=== PATIENT | female | born 1975 | race Caucasian/White ===

== ENCOUNTER 2020-04-05 06:29 | Emergency (ER) | payer SELFPAY ==
[~2020-04-05] VITALS: Ht 157.5 cm; Wt 73.9 kg
[2020-04-05 06:34] VITALS: Ht 157.5 cm; Wt 73.9 kg
[2020-04-05 09:33] LABS: CARBON DIOXIDE 26.4 mmol/L (21-32); CHLORIDE SERUM 101 mmol/L (98-107); CREATININE SERUM 0.8 mg/dL (0.6-1.0); GFR1 > 60 mL/min; GLUCOSE SERUM 109 mg/dL (74-106); POTASSIUM SERUM 3.5 mmol/L (3.5-5.1); SODIUM SERUM 136 mmol/L (136-145)
[2020-04-05 09:37] LABS: ALBUMIN 4.1 g/dL (3.4-5.0); ALKALINE PHOSPHATASE 159 U/L (46-116); ALT/SGPT 566 U/L (14-59); AST/SGOT 740 U/L (15-37); BASOPHIL % 0.3 % (0-2); BILIRUBIN TOTAL 0.45 mg/dL (0.20-1.00); LIPASE 358 IU/L (73-393); PLATELET COUNT 341 x10^3mcL (130-400)
[2020-04-05 09:52] LABS: RED CELL DISTRIBUTION WIDTH 18.5 % (11.5-14.5)
[2020-04-05 10:19] VITALS: BP 125/60
== END 2020-04-05 10:19 | disposition home or self-care (01) ==
LOC: ED 06:29
PROVIDERS: Emergency Medicine
DX: K80.20 Calculus of gallbladder without cholecystitis without obstruction (principal); R74.01 Elevation of levels of liver transaminase levels
CPT/HCPCS: Q0092